=== PATIENT | female | born 1955 | race Caucasian/White ===

== ENCOUNTER → 2016-09-13 | Outpatient (CLI) | payer BC, OTHER ==
--- NOTE | 2016-09-13 16:04 | REPMRS ---
Patient History The patient states she had a clinical breast exam in 07/10 Patient is postmenopausal. Family history of breast cancer in paternal cousin. Digital Woman Screen Mammo: September 13, 2016 - Exam #: [id number] Bilateral CC and MLO view(s) were taken. Technologist: Linda Abrams, Technologist Prior study comparison: February 04, 2014, digital woman screen mammo performed at [facility]. February 03, 2013, digital woman screen mammo performed at [facility]. May 13, 2011, bilateral bilat screen digital mammo performed at [facility]. FINDINGS: There are scattered fibroglandular densities. There has been no change in the appearance of the mammogram from the prior studies. There is a mild amount of scattered fibroglandular density which is fairly symmetric. There is no interval development of dominant mass, architectural distortion, or clustered microcalcification suggestive of malignancy. ASSESSMENT: BI-RADS/ACR category 1 mammogram. Negative. Recommendation Routine screening mammogram in 1 year (for women over age 40). This mammogram was interpreted with the aid of an FDA-approved computer-aided dectection system. Electronically Signed By: Reg Brown MD 09/13/16 [id number]
== END ==
LOC: M WHC 15:15
PROVIDERS: ATTEND Nurse Practitioner Adult Health
DX: Z12.31 Encounter for screening mammogram for malignant neoplasm of breast (principal); Z78.0 Asymptomatic menopausal state

== ENCOUNTER → 2016-09-18 | Outpatient (CLI) | payer BC, OTHER ==
[2016-09-18 09:36] LABS: MEAN CORPUSCULAR HEMOGLOBIN 31.9 pg (27.0-33.0); MEAN CORPUSCULAR HGB CONC 34.6 g/dl (32.0-36.5); MEAN CORPUSCULAR VOLUME 92.3 fl (80.0-96.0); RED CELL DISTRIBUTION WIDTH 12.3 % (11.5-14.5); WHITE BLOOD COUNT 3.8 K/mm3 (4.0-10.0)
--- NOTE | 2016-09-18 09:45 | REP ---
Chest x-ray: Two views. History: Anemia. Comparison chest x-ray: August 20, 2013. Findings: The lungs are well inflated and clear. The pleural angles are sharp. There is a pectus excavatum deformity seen on the lateral radiograph mild in degree and unchanged. No other bony abnormality is appreciated. Minimal spurring is seen in the thoracic spine. Heart is not enlarged. Pulmonary vasculature is not increased. Impression: No active disease. Signed by Asad Brown MD 09/18/2016 06:32 P
[2016-09-18 10:25] LABS: ALKALINE PHOSPHATASE 48 U/L (45-117); ALT/SGPT 21 U/L (12-78); ANION GAP 7 MEQ/L (8-16); AST/SGOT 12 U/L (15-37); BILIRUBIN,TOTAL 0.4 MG/DL (0.2-1.0); BLOOD UREA NITROGEN 18 MG/DL (7-18); CALCIUM LEVEL 8.8 MG/DL (8.8-10.2); CARBON DIOXIDE LEVEL 29 MEQ/L (21-32); CHLORIDE LEVEL 107 MEQ/L (98-107); CHOLESTEROL LEVEL 198 MG/DL (<200); CREATININE FOR GFR 0.94 MG/DL (0.55-1.02); GLOMERULAR FILTRATION RATE > 60.0 (>45); GLUCOSE, FASTING 80 MG/DL (80-110); POTASSIUM SERUM 4.1 MEQ/L (3.5-5.1); SODIUM LEVEL 143 MEQ/L (136-145); TRIGLYCERIDES LEVEL 87 MG/DL (<150)
[2016-09-18 10:26] LABS: ALBUMIN 4.1 GM/DL (3.2-5.2); ALBUMIN/GLOBULIN RATIO 1.41 (1.00-1.93); PERCENT SATURATION 27.2 % (13.2-37.4); TOTAL IRON BINDING CAPACITY 312 UG/DL (250-450)
--- NOTE | 2016-09-18 18:33 | ECGEPIP ---
Stationary ECG Study [facility] Test Date: 2016-09-18 Pat Name: YESENIA CAMPOVERDE Department: Room: - Gender: F Manager Strategy: KHURRAM : 1955 Requested By: Sumaya Ross Order Number: [id number] Reading MD: Moris Gross Measurements Intervals [place] Rate: 51 P: 24 MT: 154 QRS: 3 QRSD: 93 T: 25 QT: 427 QTc: 395 Interpretive Statements SINUS BRADYCARDIA POSSIBLE ANTERIOR MYOCARDIAL INFARCTION, OF INDETERMINATE AGE VS POOR R WAVE PROGRESSION DUE TO LEAD PLACEMENT LAST TRACING ON 08/20/2013 AT 8:51:36. THERE WAS BETTER R WAVE PROGRESSION AND HEART RATE WAS FASTER Electronically Signed On 09-18-2016 18:32:50 EST by Moris Gross
== END ==
LOC: M LAB 08:37
PROVIDERS: ATTEND Family Medicine
DX: D64.9 Anemia, unspecified (principal); E03.9 Hypothyroidism, unspecified

== ENCOUNTER → 2017-02-27 | Outpatient (REF) | payer OTHER | LOC: M LAB REF 16:25 | PROVIDERS: ATTEND Physician Assistant | DX: N39.0 Urinary tract infection, site not specified (principal) ==

== ENCOUNTER → 2017-12-08 | Outpatient (REF) | payer OTHER | LOC: M LAB REF 08:58 | DX: N39.0 Urinary tract infection, site not specified (principal) | CPT/HCPCS: 87186 ==

== ENCOUNTER → 2018-05-18 | Outpatient (REF) | payer OTHER | LOC: M LAB REF 13:35 | DX: R30.0 Dysuria (principal) ==

== ENCOUNTER → 2018-06-05 | Outpatient (CLI) | payer BC, OTHER | LOC: M WHC 08:06 | DX: Z12.31 Encounter for screening mammogram for malignant neoplasm of breast (principal); Z78.0 Asymptomatic menopausal state | CPT/HCPCS: 77067 ==

== ENCOUNTER → 2020-01-21 | Outpatient (CLI) | payer BC, OTHER ==
[~2020-01-21] MED LIST: ABIL1TAB13 PO; TRAZ1TAB10 PO; VIIB20TA PO
[2020-01-21 09:48] LABS: BASO % 0.3 % (0.0-1.0); EOS % 0.6 % (0.0-3.0); HEMATOCRIT 37.9 % (36.0-47.0); HEMOGLOBIN 12.9 g/dl (12.0-15.5); LYMPH # 2.1 10^3/uL (1.5-5.0); LYMPH % 33.9 % (24.0-44.0); MEAN CORPUSCULAR HEMOGLOBIN 31.8 pg (27.0-33.0); MEAN CORPUSCULAR VOLUME 93.3 fl (80.0-96.0); MONO # 0.5 10^3/uL (0.0-0.8); MONO % 7.8 % (0.0-5.0); NEUTROPHILS # 3.5 10^3/uL (1.5-8.5); NEUTROPHILS % 57.1 % (36.0-66.0); PLATELET COUNT, AUTOMATED 237 10^3/uL (150-450); RED BLOOD COUNT 4.06 10^6/uL (4.00-5.40); WHITE BLOOD COUNT 6.2 10^3/uL (4.0-10.0)
[2020-01-21 11:00] LABS: ALBUMIN 3.8 GM/DL (3.2-5.2); ALT/SGPT 28 U/L (12-78); BILIRUBIN,TOTAL 0.7 MG/DL (0.2-1.0); BLOOD UREA NITROGEN 16 MG/DL (7-18); CALCIUM LEVEL 8.9 MG/DL (8.8-10.2); CARBON DIOXIDE LEVEL 26 MEQ/L (21-32); CHLORIDE LEVEL 107 MEQ/L (98-107); CREATININE FOR GFR 0.94 MG/DL (0.55-1.30); GLOMERULAR FILTRATION RATE > 60.0 (>45); GLUCOSE, FASTING 92 MG/DL (70-100); LIPASE 137 U/L (73-393); POTASSIUM SERUM 4.1 MEQ/L (3.5-5.1); SODIUM LEVEL 139 MEQ/L (136-145)
== END ==
LOC: M WUC 08:23
PROVIDERS: ATTEND Physician Assistant
DX: R10.84 Generalized abdominal pain (principal); R19.7 Diarrhea, unspecified

== ENCOUNTER → 2020-01-23 | Outpatient (CLI) | payer BC, OTHER | LOC: M LABSMTC 11:43 | PROVIDERS: ATTEND Anesthesiology | DX: Z01.818 Encounter for other preprocedural examination (principal); Z11.59 Encounter for screening for other viral diseases | CPT/HCPCS: C9803; U0003 ==

== ENCOUNTER 2020-01-26 10:33 | Day surgery (SDC) | payer BC, OTHER ==
[~2020-01-26] VITALS: Ht 172.7 cm; Wt 86.2 kg
[~2020-01-26 10:33] MED LIST changes: +NS 1,000 ML IV ONE
[2020-01-26] MEDS ORDERED: LIDOCAINE 2% 100MG/5ML SDV (FOR ANES.) As Ordered ONE (11:08)
[2020-01-26] MEDS ORDERED: propofoL 200 MG/20 ML VIAL As Ordered ONE ×2 (11:09→12:08)
--- NOTE | 2020-01-26 12:26 | ROOR ---
Patient Name: Natalia Schroeder Procedure Date: 01/26/2020 11:52 AM Date of : 1955 Age: 64 Room: [facility] Gender: Female Note Status: Finalized Procedure: Total Colonoscopy to Cecum + Cold Snare Polypectomy + Hemoclips Indications: Screening for colorectal malignant neoplasm Providers: Watson Romero MD Referring MD: IAN MEDLEY NP Requesting Provider: Medicines: Monitored Anesthesia Care Complications: No immediate complications. Procedure: Pre-Anesthesia Assessment: - The heart rate, respiratory rate, oxygen saturations, blood pressure, adequacy of pulmonary ventilation, and response to care were monitored throughout the procedure. The Colonoscope was introduced through the anus and advanced to the cecum, identified by appendiceal orifice and ileocecal valve. The colonoscopy was performed without difficulty. The patient tolerated the procedure well. The quality of the bowel preparation was excellent. Findings: The perianal and digital rectal examinations were normal. Non-bleeding internal hemorrhoids were found during retroflexion. The hemorrhoids were small and Grade I (internal hemorrhoids that do not prolapse). Multiple small and large-mouthed diverticula were found in the recto-sigmoid colon, sigmoid colon and descending colon. A medium polyp was found in the cecum. The polyp was sessile. The polyp was removed with a cold snare. Resection and retrieval were complete. To prevent bleeding after the polypectomy, two hemostatic clips were successfully placed (MR conditional). There was no bleeding at the end of the procedure. The exam was otherwise without abnormality on direct and retroflexion views. Impression: - Non-bleeding internal hemorrhoids. - Diverticulosis in the recto-sigmoid colon, in the sigmoid colon and in the descending colon. - One medium polyp in the cecum, removed with a cold snare. Resected and retrieved. Clips (MR conditional) were placed. - The examination was otherwise normal on direct and retroflexion views. - The exam was otherwise normal to the cecum. Recommendation: - Patient has a contact number available for emergencies. The signs and symptoms of potential delayed complications were discussed with the patient. Return to normal activities tomorrow. Written discharge instructions were provided to the patient. - Resume previous diet. - Discharge patient to home. - Continue present medications. - Await pathology results. - Telephone GI clinic for pathology results in 1 week. - Repeat colonoscopy for surveillance based on pathology results. - Return to referring physician. - The findings and recommendations were discussed with the patient's family. Watson Romero MD Watson Romero MD 01/26/2020 12:26:01 PM Electronically signed by Watson Romero MD Number of Addenda: 0 Note Initiated On: 01/26/2020 11:52 AM Estimated Blood Loss: Estimated blood loss: none.
[2020-01-26 12:45] VITALS: BP 125/73
== END 2020-01-26 12:57 | disposition home or self-care (01) ==
LOC: M OPP 10:33
PROVIDERS: ATTEND Internal Medicine Gastroenterology
DX: Z12.11 Encounter for screening for malignant neoplasm of colon (principal); D12.0 Benign neoplasm of cecum; K57.30 Diverticulosis of large intestine without perforation or abscess without bleeding; K64.0 First degree hemorrhoids; Z79.899 Other long term (current) drug therapy; Z88.8 Allergy status to other drugs, medicaments and biological substances; Z87.891 Personal history of nicotine dependence

== ENCOUNTER → 2020-11-30 | Outpatient (REF) | payer OTHER ==
[~2020-11-30] MED LIST changes: -NS 1,000 ML IV ONE
== END ==
LOC: M LAB REF 12:22
PROVIDERS: ATTEND Nurse Practitioner Adult Health
DX: N39.0 Urinary tract infection, site not specified (principal)

== ENCOUNTER → 2020-12-06 | Outpatient (CLI) | payer BC, OTHER ==
--- NOTE | 2020-12-06 09:46 | DEXAMM ---
INDICATION: Z13.820 SCR FOR OSTEOPOROSIS. COMPARISON: 11/17/2009. TECHNIQUE: Bone density was measured using dual-energy x-ray absorptiometry (DEXA). FINDINGS: AP SPINE L1-L4 BMD 1.479 g/cm2 Young Adult T-Score 2.3 Age Matched Z-Score 3.9. LT FEMUR, TOTAL BMD 1.137 g/cm2 Young Adult T-Score 1.0 Age Matched Z-Score 2.2. LT NECK BMD 1.102 g/cm2 Young Adult T-Score 0.5 Age Matched Z-Score 1.9. RT FEMUR, TOTAL BMD 1.177 g/cm2 Young Adult T-Score 1.3 Age Matched Z-Score 2.5. RT NECK BMD 1.049 g/cm2 Young Adult T-Score 0.1 Age Matched Z-Score 1.5. IMPRESSION: There is normal bone density of the spine. There is normal bone density of the left hip. There is normal bone density of the right hip. The density of the spine has increased 3.0% since the initial exam on 11/17/2009. The density of the left hip has decreased 4.4% since initial exam on 11/17/2009. The density of the right hip has decreased 2.6% since the initial exam on 11/17/2009. FOLLOW-UP: Recommendation for the next bone density exam: 5 years. <Electronically signed by Gregorio Akbar > 12/06/20 [id number]
--- NOTE | 2020-12-06 09:51 | REPMRS ---
Patient History The patient states she had a clinical breast exam in October 2020. Family history of breast cancer in paternal cousin. No Hormone Replacement Therapy 3D TOMOSYNTHESIS WAS PERFORMED. The Vania Hoyt lifetime risk for breast cancer is 5.1%. Volpara breast density b. Digital Woman Screen Mammo: December 06, 2020 - Exam #: [id number] Bilateral CC and MLO view(s) were taken. Technologist: Elizabeth Wiely, Technologist Prior study comparison: June 05, 2018, bilateral digital woman screen mammo performed at [facility]. September 13, 2016, digital woman screen mammo performed at [facility]. FINDINGS: There are scattered fibroglandular densities. There has been no change in the appearance of the mammogram from the prior studies. There is a mild amount of residual fibroglandular tissue which is fairly symmetric. There is no interval development of dominant mass, architectural distortion, or clustered microcalcification suggestive of malignancy. Assessment: BI-RADS/ACR category 1 mammogram. Negative Mammogram. Recommendation Routine screening mammogram in 1 year (for women over age 40). This mammogram was interpreted with the aid of an FDA-approved computer-aided dectection system. Electronically Signed By: Gregorio Akbar MD 12/06/20 [id number]
== END ==
LOC: M WHC 08:33
PROVIDERS: ATTEND Registered Nurse
DX: Z12.31 Encounter for screening mammogram for malignant neoplasm of breast (principal); Z13.820 Encounter for screening for osteoporosis; Z80.3 Family history of malignant neoplasm of breast; M85.851 Other specified disorders of bone density and structure, right thigh; M85.852 Other specified disorders of bone density and structure, left thigh; M85.88 Other specified disorders of bone density and structure, other site

== ENCOUNTER → 2021-03-05 | Outpatient (CLI) | payer BC, OTHER ==
[2021-03-05 10:29] LABS: BASO % 0.4 % (0.0-1.0); EOS % 0.8 % (0.0-3.0); HEMATOCRIT 39.5 % (36.0-47.0); HEMOGLOBIN 12.9 g/dl (12.0-15.5); LYMPH # 2.4 10^3/uL (1.5-5.0); LYMPH % 50.1 % (24.0-44.0); MEAN CORPUSCULAR HEMOGLOBIN 32.1 pg (27.0-33.0); MEAN CORPUSCULAR HGB CONC 32.7 g/dl (32.0-36.5); MEAN CORPUSCULAR VOLUME 98.3 fl (80.0-96.0); MONO # 0.3 10^3/uL (0.0-0.8); NEUTROPHILS % 41.5 % (36.0-66.0); PLATELET COUNT, AUTOMATED 259 10^3/uL (150-450); RED BLOOD COUNT 4.02 10^6/uL (4.00-5.40); WHITE BLOOD COUNT 4.7 10^3/uL (4.0-10.0)
== END ==
LOC: M WUC 08:18
PROVIDERS: ATTEND Nurse Practitioner Adult Health
DX: M79.18 Myalgia, other site (principal); M25.551 Pain in right hip; R42 Dizziness and giddiness

== ENCOUNTER → 2022-01-15 | Outpatient (CLI) | payer BC, OTHER | LOC: M WHC 09:57 | PROVIDERS: ATTEND Registered Nurse | DX: Z12.31 Encounter for screening mammogram for malignant neoplasm of breast (principal); Z78.0 Asymptomatic menopausal state; Z80.3 Family history of malignant neoplasm of breast ==

== ENCOUNTER → 2022-02-05 | Outpatient (REF) | payer BC, OTHER | LOC: M LAB REF 19:29 | PROVIDERS: ATTEND Physician Assistant | DX: R50.9 Fever, unspecified (principal); M79.10 Myalgia, unspecified site; Z20.828 Contact with and (suspected) exposure to other viral communicable diseases ==

== ENCOUNTER → 2022-05-03 | Outpatient (CLI) | payer OTHER | LOC: M WUC 10:41 | PROVIDERS: ATTEND Registered Nurse | DX: M50.00 Cervical disc disorder with myelopathy, unspecified cervical region (principal) ==

== ENCOUNTER → 2022-05-30 | Outpatient (CLI) | payer BC, OTHER | LOC: M PLARAD 13:18 | PROVIDERS: ATTEND Registered Nurse | DX: R51.9 Headache, unspecified (principal); M54.2 Cervicalgia; J32.3 Chronic sphenoidal sinusitis ==

== ENCOUNTER → 2022-07-03 | Outpatient (CLI) | payer BC, OTHER | LOC: M WHC 07:31 | PROVIDERS: ATTEND Registered Nurse | DX: N63.20 Unspecified lump in the left breast, unspecified quadrant (principal) ==

== ENCOUNTER → 2022-07-31 | Outpatient (CLI) | payer BC, OTHER | LOC: M WHC 08:07 | PROVIDERS: ATTEND Registered Nurse | DX: S37.892A Contusion of other urinary and pelvic organ, initial encounter (principal); N63.20 Unspecified lump in the left breast, unspecified quadrant; W19.XXXA Unspecified fall, initial encounter; Y92.9 Unspecified place or not applicable; Y93.9 Activity, unspecified; Y99.9 Unspecified external cause status ==

== ENCOUNTER → 2022-08-06 | Outpatient (CLI) | payer BC, OTHER ==
[~2022-08-06] MED LIST changes: +**SFHN** LIDOCAINE 1% MDV 20ML VIAL ONE; +**SFHN** SODIUM BICARBONATE 8.4% 10MEQ 10ML VIAL ONE
[2022-08-06 14:00] VITALS: BP 136/84
== END ==
LOC: M WHCPRO 12:53
PROVIDERS: ATTEND Registered Nurse
DX: N64.4 Mastodynia (principal); R22.9 Localized swelling, mass and lump, unspecified; N63.20 Unspecified lump in the left breast, unspecified quadrant
CPT/HCPCS: 19083; 77065; 88173; 88305; G0279

== ENCOUNTER → 2022-12-24 | Outpatient (CLI) | payer BC, OTHER, MEDICARE ==
[~2022-12-24] MED LIST changes: -**SFHN** LIDOCAINE 1% MDV 20ML VIAL ONE; -**SFHN** SODIUM BICARBONATE 8.4% 10MEQ 10ML VIAL ONE
== END ==
LOC: M RAD 14:52
PROVIDERS: ATTEND Internal Medicine
DX: E04.1 Nontoxic single thyroid nodule (principal)

== ENCOUNTER → 2022-12-30 | Outpatient (REF) | payer BC, OTHER, MEDICARE | LOC: M WUC 19:55 | PROVIDERS: ATTEND Physician Assistant | DX: N30.01 Acute cystitis with hematuria (principal) ==

== ENCOUNTER → 2023-01-08 | Outpatient (CLI) | payer MEDICARE, BC, OTHER ==
[2023-01-08 08:33] LABS: BASO % 0.6 % (0.0-1.0); EOS % 0.6 % (0.0-3.0); HEMATOCRIT 40.9 % (36.0-47.0); HEMOGLOBIN 13.6 g/dl (12.0-15.5); LYMPH # 2.7 10^3/uL (1.5-5.0); LYMPH % 49.9 % (24.0-44.0); MEAN CORPUSCULAR HEMOGLOBIN 31.6 pg (27.0-33.0); MEAN CORPUSCULAR HGB CONC 33.3 g/dl (32.0-36.5); MEAN CORPUSCULAR VOLUME 94.9 fl (80.0-96.0); MONO # 0.3 10^3/uL (0.0-0.8); MONO % 6.3 % (2.0-8.0); NEUTROPHILS # 2.3 10^3/uL (1.5-8.5); NEUTROPHILS % 42.2 % (36.0-66.0); PLATELET COUNT, AUTOMATED 285 10^3/uL (150-450); RED BLOOD COUNT 4.31 10^6/uL (4.00-5.40); WHITE BLOOD COUNT 5.4 10^3/uL (4.0-10.0)
[2023-01-08 08:38] LABS: ALBUMIN 3.9 G/DL (3.2-5.2); ALKALINE PHOSPHATASE 63 U/L (46-116); ALT/SGPT 37 U/L (7.0-40); AST/SGOT 19 U/L (<34); BILIRUBIN,TOTAL 0.6 MG/DL (0.3-1.2); BLOOD UREA NITROGEN 22 MG/DL (9-23); CARBON DIOXIDE LEVEL 28 MMOL/L (20-31); CHLORIDE LEVEL 105 MMOL/L (98-107); CHOLESTEROL LEVEL 207 MG/DL (<200); CHOLESTEROL RISK RATIO 3.14 (<5); CREATININE FOR GFR 0.79 MG/DL (0.55-1.30); GLOMERULAR FILTRATION RATE > 60.0 (>45); GLUCOSE, FASTING 90 MG/DL (74-106); HDL CHOLESTEROL 65.8 MG/DL (>40); NON-HDL-C 141.2 MG/DL; POTASSIUM SERUM 4.3 MMOL/L (3.5-5.1); SODIUM LEVEL 141 MMOL/L (136-145); TOTAL PROTEIN 6.7 G/DL (5.7-8.2); TRIGLYCERIDES LEVEL 136 MG/DL (<150)
[2023-01-08 09:27] LABS: HEMOGLOBIN A1c 5.2 % (4.0-6.0)
== END ==
LOC: M LAB 07:11
PROVIDERS: ATTEND Physician Assistant
DX: F33.1 Major depressive disorder, recurrent, moderate (principal); F41.1 Generalized anxiety disorder; Z79.899 Other long term (current) drug therapy

== ENCOUNTER → 2023-09-23 | Outpatient (CLI) | payer MEDICARE, OTHER | LOC: M WHC 07:20 | PROVIDERS: ATTEND Internal Medicine | DX: Z12.31 Encounter for screening mammogram for malignant neoplasm of breast (principal); R92.323 Mammographic fibroglandular density, bilateral breasts; R92.8 Other abnormal and inconclusive findings on diagnostic imaging of breast ==

== ENCOUNTER → 2023-09-30 | Outpatient (CLI) | payer MEDICARE, OTHER | LOC: M WHC 08:51 | PROVIDERS: ATTEND Internal Medicine | DX: R92.8 Other abnormal and inconclusive findings on diagnostic imaging of breast (principal); N63.20 Unspecified lump in the left breast, unspecified quadrant ==

== ENCOUNTER → 2023-10-16 | Outpatient (CLI) | payer MEDICARE, OTHER ==
[2023-10-16 09:30] VITALS: TEMP 98.4
[2023-10-16 10:46] VITALS: BP 132/78; O2SAT 100
== END ==
LOC: M WHCPRO 08:57
PROVIDERS: ATTEND Internal Medicine
DX: R92.2 Inconclusive mammogram (principal); N63.21 Unspecified lump in the left breast, upper outer quadrant

== ENCOUNTER → 2023-10-17 | Outpatient (REF) | payer MEDICARE, OTHER | LOC: M LAB REF 16:10 | PROVIDERS: ATTEND Physician Assistant | DX: R10.30 Lower abdominal pain, unspecified (principal) ==

== ENCOUNTER → 2023-12-24 | Outpatient (REF) | payer MEDICARE, OTHER | LOC: M LAB REF 13:12 | PROVIDERS: ATTEND Internal Medicine | DX: R19.7 Diarrhea, unspecified (principal) ==

== ENCOUNTER → 2023-12-29 | Outpatient (REF) | payer MEDICARE, OTHER | LOC: M LAB REF 09:49 | PROVIDERS: ATTEND Internal Medicine | DX: R19.7 Diarrhea, unspecified (principal) ==

== ENCOUNTER → 2024-01-10 | Outpatient (REF) | payer MEDICARE, OTHER | LOC: M LAB REF 15:03 | PROVIDERS: ATTEND Internal Medicine Gastroenterology | DX: Z86.010 Personal history of colon polyps (principal) ==

== ENCOUNTER → 2024-02-26 | Outpatient (REF) | payer MEDICARE, OTHER | LOC: M LAB REF 07:17 | PROVIDERS: ATTEND Internal Medicine | DX: R19.7 Diarrhea, unspecified (principal) ==

== ENCOUNTER → 2024-03-30 | Outpatient (CLI) | payer MEDICARE, OTHER | LOC: M RAD 08:33 | PROVIDERS: ATTEND Internal Medicine | DX: E04.1 Nontoxic single thyroid nodule (principal) ==

== ENCOUNTER 2024-05-19 08:15 | Day surgery (SDC) | payer MEDICARE, OTHER ==
[~2024-05-19] VITALS: Ht 172.7 cm; Wt 83.5 kg
[~2024-05-19 08:15] MED LIST changes: +NS 1,000 ML IV ONE
[2024-05-19] MEDS ORDERED: propofoL 200 MG/20 ML VIAL As Ordered ONE (09:28)
[2024-05-19] MEDS ORDERED: LIDOCAINE 2% 100MG/5ML SDV (FOR ANES.) As Ordered ONE (09:28)
[2024-05-19 09:53] VITALS: TEMP 97.9
[2024-05-19 10:11] VITALS: BP 130/70; O2SAT 96
== END 2024-05-19 10:17 | disposition home or self-care (01) ==
LOC: M OPP 08:15
PROVIDERS: ATTEND Internal Medicine Gastroenterology
DX: D12.0 Benign neoplasm of cecum (principal); K64.0 First degree hemorrhoids; K57.30 Diverticulosis of large intestine without perforation or abscess without bleeding; Z86.010 Personal history of colon polyps; F10.10 Alcohol abuse, uncomplicated; Z88.2 Allergy status to sulfonamides; Z88.8 Allergy status to other drugs, medicaments and biological substances

== ENCOUNTER → 2024-09-16 | Outpatient (REF) | payer MEDICARE, OTHER ==
[~2024-09-16] MED LIST changes: -NS 1,000 ML IV ONE
== END ==
LOC: M LAB REF 17:45
PROVIDERS: ATTEND Internal Medicine
DX: L97.529 Non-pressure chronic ulcer of other part of left foot with unspecified severity (principal)

== ENCOUNTER → 2024-09-17 | Outpatient (REF) | payer MEDICARE, OTHER | LOC: M LAB REF 10:01 | PROVIDERS: ATTEND Internal Medicine | DX: R19.7 Diarrhea, unspecified (principal) ==